=== PATIENT | male | born 1970 | race Caucasian/White ===

== ENCOUNTER 2019-05-20 17:08 | Inpatient (IN) | payer BC ==
[~2019-05-20 17:08] MED LIST: ISOVUE-370 76%-LOCM 1 ML ONE
[2019-05-20 18:45] LABS: Mean Corpuscular HGB CONC 33.4 g/dL (32.0-36.0); Mean Corpuscular Hemoglobin 31.2 pg (27.0-31.0); Mean Corpuscular Volume 93.3 fL (78.0-98.0); Mean Platelet Volume 7.5 fL (7.4-10.4); Platelet Count 195 thou/uL (130-400); RBC Distribution Width 12.8 % (11.5-14.5); Red Blood Cell (RBC) Count 5.15 mill/uL (4.70-6.10); White Blood Cell (WBC) Count 17.4 thou/uL (4.8-10.8)
--- NOTE | 2019-05-20 18:56 | CT ---
CT OF THE ABDOMEN AND PELVIS WITH IV CONTRAST: 05/20/19 INDICATION: History of left sided abdominal pain with leukocytosis. COMPARISON: None. FINDINGS: There is a small left pleural effusion with left basilar atelectasis. There is inflammatory stranding surrounding the pancreas with peripancreatic edema. There is a 1.4 cm nodule involving the right adrenal gland that is incompletely characterized. Left adrenal gland is n ormal appearing. The kidneys demonstrate a nonobstructed calculus measuring 9 mm within the inferior pole of the right kidney. No focal hepatic lesion is evident. The visualized gallbladder demonstrates a small stone within the gallbladder neck. There is a normal appendix in the right lower quadrant. T here is scattered diverticula involving the colon without evidence of active diverticulitis. Small nadine wel is of normal caliber. The bladder is partially decompressed. There is scattered degenerative an osteoarthritic change. IMPRESSION: 1. Findings of acute pancreatitis. 2. Small calcification seen in the gallbladder suspicious for stone; however, would recommend ri ght upper quadrant ultrasound for further characterization. 3. Right adrenal lesion incompletely characterized on the current study. There is suggestion of a tiny lobule of macroscopic fat along the superior margin of the lesion on image 25 of series 2 and this may reflect a small myelolipoma. Further characterization after abatement of the patient's acute symptoms is recommended. CT of the abdomen with and without contrast utilizing adrenal mass protocol is recommended. 4. Right nephrolithiasis. 5. Colonic diverticulosis. 6. Small left pleural effusion and left basilar atelectasis. POS: BH
[2019-05-20 19:07] LABS: Band 35 % (5-11); Lymphocytes 2 % (21-51); MDiff Complete? YES; Monocytes 8 % (0-10); Neutrophil 52 % (42-75); Platelet Morphology Comment Appears Adequate; Polychromasia SLIGHT = 2-3 cells (100X) (0-2/hpf); Reactive Lymphocytes 3 % (0-10)
[2019-05-20 19:09] LABS: ALT (SGPT) 23 U/L (8-55); AST (SGOT) 28 U/L (5-34); Albumin 3.7 g/dL (3.5-5.0); Alkaline Phosphatase 57 U/L (40-110); Anion Gap 16 mmol/L (10-20); BUN (Urea Nitrogen) 20 mg/dL (8.9-20.6); Bilirubin, Total 1.1 mg/dL (0.2-1.2); Calc. Creatinine Clearance 0 mL/min (70-130); Calcium 9.2 mg/dL (7.8-10.44); Carbon Dioxide 29 mmol/L (22-29); Chloride 89 mmol/L (98-107); Estimated GFR-MDRD Greater than 90; Globulin 3.7 g/dL (2.4-3.5); Glucose 123 mg/dL (70-105); Lipase 22 U/L (8-78); Potassium 3.7 mmol/L (3.5-5.1); Protein, Total 7.4 g/dL (6.0-8.3); Sodium 130 mmol/L (136-145)
[2019-05-20 19:32] LABS: Bilirubin Negative (Negative); Blood, Urine Negative (Negative); Clarity Clear (Clear); Glucose, Urine (Dipstick) Normal (Negative); Leukocyte Negative Leu/uL (Negative); Nitrite Negative (Negative); Protein, Urine (Dipstick) 20 mg/dL (Neg-Trace)
[2019-05-20] MEDS ORDERED: Senokot S 8.6-50 MG TAB PO PRN (20:13)
[2019-05-20] MEDS ORDERED: Acetaminophen 325 MG TAB PO PRN (20:13)
[2019-05-20] MEDS ORDERED: Ondansetron PF 4 MG/2 ML Vial IVP PRN (20:13)
[2019-05-20] MEDS ORDERED: Dextrose 50% Abboject 50 ML SYRINGE SLOW IVP PRN (20:47)
[2019-05-20] MEDS ORDERED: HumaLOG 300 UNITS/3 ML VIAL SC PRN (20:47)
[2019-05-20] MEDS ORDERED: Dextrose 5% in Water 1,000 ML IV PRN (20:47)
[2019-05-20 21:40] VITALS: BMI 50.6
[2019-05-20] MEDS: Morphine 4 MG/ML VIAL SLOW IVP PRN (22:04)
[2019-05-20] MEDS: Sodium Chloride 0.9% 1,000 ML IV SCH (22:07)
[2019-05-20] MEDS: Famotidine 20 MG TAB PO SCH (22:50)
[2019-05-20] MEDS ORDERED: ALPRAZolam 0.5 MG TAB PO PRN (23:42)
--- NOTE | 2019-05-21 00:44 | HP ---
PRIMARY CARE PHYSICIAN: Dr. Curtis. CHIEF COMPLAINT: Abdominal pain, abnormal lab values. HISTORY OF PRESENT ILLNESS: Mr. Humphrey is a 48-year-old male, who reported to the emergency room today after he was seen in an emergency room yesterday for a possible bowel obstruction with associated abdominal pain and diarrhea and was discharged home. When he went home, he reported that his abdominal distention concerned him and he went to his PCP, who referred him to this emergency room at [facility] for a possible CT scan. The patient reports having normal bowel movements today. Reports did not have any pain or change in stool, but reports that he has not eaten much at all since Thursday. The patient reports he also has some bilateral lower back pain, which caused the PCP to be concerned and wanted him to be evaluated for pancreatitis. The patient denies any UTI symptoms. Denies any fever or chills. He does have a past medical history pertinent for type 2 diabetes, high blood pressure, and high cholesterol. CT scan done in the emergency room shows acute pancreatitis. Small calcification in the gallbladder suspicious for a stone. I am going to recommend right upper quadrant ultrasound for further characterization. Right adrenal lesion and a CT of the abdomen with and without contrast utilizing adrenal mass protocol is recommended once the patient's pancreatitis has resolved. Also shows right nephrolithiasis, colonic diverticulosis and a small left pleural effusion and left basilar atelectasis. The patient's lab results, pertinent, white blood cell count 17.4. Sodium 130, potassium 3.7, chloride 89, creatinine 0.83, glucose 123. Liver enzymes are unremarkable. Lipase is 22. UA with a specific gravity 1.057, ketones and urobilirubin 2+. The patient will be admitted to the medical floor for further management. PAST MEDICAL HISTORY: Type 2 diabetes, hypertension, high cholesterol. PAST SURGICAL HISTORY: Mandibular I and D. PSYCHIATRIC HISTORY: Anxiety. SOCIAL HISTORY: Rarely drinks alcohol. Denies any drug use. Does smoke cigarettes. Smokes a pack a day. KNOWN ALLERGIES: Amoxicillin, Augmentin, penicillins, vancomycin. CURRENT MEDICATIONS: 1. Xanax 0.5 mg p.o. p.r.n. 2. Vitamin B12 500 mcg p.o. daily. 3. Glyburide 1.25 mg p.o. daily. 4. Lisinopril/hydrochlorothiazide 20/25 mg p.o. daily. 5. Toprol-XL 100 mg p.o. daily. 6. Actos 45 mg p.o. daily. 7. Crestor 20 mg p.o. daily/. 8. Vitamin B1 p.o. daily. PHYSICAL EXAMINATION: VITAL SIGNS: Blood pressure 112/61, pulse is 84, respirations are 18, pO2 saturations are 95% on room air, and temperature is 98.3. CONSTITUTIONAL: The patient appears nontoxic. He is alert and oriented to person, place, and time, is in no apparent distress. HEAD: Atraumatic and normocephalic. EYES: Eyelids are normal to inspection. Pupils are equally round and reactive to light. ENT: Mouth exam is normal. Mucous membranes are moist. NECK: Normal range of motion. Trachea is midline. RESPIRATORY/CHEST: Breath sounds are clear. Chest movement is symmetrical. CARDIOVASCULAR: Regular heart rate and rhythm. Heart sounds are normal. ABDOMEN: Tender, mild intensity over the left lateral abdominal wall. Bowel sounds are heard. There is no rebound, no guarding. BACK: Normal range of motion. No CVA tenderness. EXTREMITIES: Upper extremity; normal inspection, normal range of motion. Radial pulses are normal. Lower extremity; inspection is normal, normal range of motion. Pedal pulses equal bilaterally. There is no edema noted. NEUROLOGIC: The patient is oriented to person, place, and time. Speech is normal. SKIN: Warm, dry, normal in color. PSYCHIATRIC: Oriented to person, place, and time. Has a normal affect. PLAN AND ASSESSMENT: 1. Acute pancreatitis. We will keep the patient n.p.o. We will allow home medications with small sips of water. We will increase diet as tolerated. Hydration, normal saline at 75 mL per hour. Pain medication morphine mg q.4 hours as needed, Zofran for any nausea. Repeat lab values in the morning. 2. Diabetes type 2. Accu-Cheks before meals and at bedtime. Mild sliding scale. We will hold his p.o. medications for now. 3. Hypertension. We will trend. Continue home medications. 4. Deep venous thrombosis and gastrointestinal prophylaxis have been started. 5. Hyperlipidemia. We will check lipids in the morning. 6. Hospital course dependent on clinical findings. Job ID: [id number]
[2019-05-21] MEDS: Morphine 4 MG/ML VIAL SLOW IVP PRN ×3 (02:07→19:54)
[2019-05-21 06:01] LABS: Hemoglobin 15.2 g/dL (14.0-18.0); Mean Corpuscular HGB CONC 33.4 g/dL (32.0-36.0); Mean Corpuscular Hemoglobin 31.6 pg (27.0-31.0); Mean Corpuscular Volume 94.7 fL (78.0-98.0); Mean Platelet Volume 7.3 fL (7.4-10.4); Platelet Count 201 thou/uL (130-400); RBC Distribution Width 12.7 % (11.5-14.5); Red Blood Cell (RBC) Count 4.81 mill/uL (4.70-6.10); White Blood Cell (WBC) Count 17.4 thou/uL (4.8-10.8)
[2019-05-21] MEDS: Morphine 2 MG/ML SYRINGE SLOW IVP PRN ×2 (06:17→10:29)
[2019-05-21 06:28] LABS: Band 11 % (5-11); Lymphocytes 5 % (21-51); MDiff Complete? YES; Monocytes 12 % (0-10); Myelocyte 1 % (0-0); Neutrophil 71 % (42-75)
[2019-05-21 06:37] LABS: ALT (SGPT) 21 U/L (8-55); AST (SGOT) 18 U/L (5-34); Albumin 3.4 g/dL (3.5-5.0); Alkaline Phosphatase 57 U/L (40-110); Anion Gap 14 mmol/L (10-20); BUN (Urea Nitrogen) 17 mg/dL (8.9-20.6); Bilirubin, Total 1.1 mg/dL (0.2-1.2); Calc. Creatinine Clearance 254 mL/min (70-130); Calcium 8.8 mg/dL (7.8-10.44); Carbon Dioxide 30 mmol/L (22-29); Cardiac Risk 2.2 (Less than 4.5); Chloride 91 mmol/L (98-107); Cholesterol 76 mg/dl (< 200 Desired); Estimated GFR-MDRD Greater than 90; Globulin 2.9 g/dL (2.4-3.5); Glucose 123 mg/dL (70-105); HDL Cholesterol 35 mg/dL (>60 Neg Risk); LDL Cholesterol, Calculated 32 mg/dL; Lipase 18 U/L (8-78); Protein, Total 6.3 g/dL (6.0-8.3); Sodium 132 mmol/L (136-145); Triglycerides 46 mg/dL (Less than 150)
--- NOTE | 2019-05-21 08:01 | ULT ---
RIGHT UPPER QUADRANT ULTRASOUND CLINICAL HISTORY: Stone in the common bile duct with pancreatitis. COMPARISON: None FINDINGS: Liver:Normal echotexture without focal mass. Bile ducts: No intrahepatic or extrahepatic biliary dilation.; common bile duct: 0.53cm. Gallbladder: No intraluminal stones are demonstrated. There is mild wall thickening involving the gal lbladder measuring up to 6 mm. No appreciable pericholecystic fluid is evident. Carrillo's sign:Positive Main portal vein:Not well assessed Pancreas: Not well seen Right kidney: No pelvicalyceal dilatation. Right kidney measures 13.4 x 6.8 x 6.6 cm. Additional findings: None. IMPRESSION: No intraluminal gallstones demonstrated. There is gallbladder wall thickening and report of a positiv e sonographic Carrillo's sign. Findings are quadrupled for acute cholecystitis by sonography. Common bile duct was normal in size.
[2019-05-21] MEDS: Rosuvastatin 20 MG TAB PO SCH (08:02)
[2019-05-21] MEDS: Enoxaparin Sodium 40 MG/0.4 ML SYRINGE SC SCH (08:02)
[2019-05-21] MEDS: Famotidine 20 MG TAB PO SCH ×2 (08:03→19:54)
[2019-05-21] MEDS: Lisinopril/Hydrochlorothiazide 20/25 mg Tablet PO SCH (08:03)
[2019-05-21] MEDS: Sodium Chloride 0.9% 1,000 ML IV SCH ×2 (10:29→19:53)
--- NOTE | 2019-05-21 14:52 | PDOC.HOSPP ---
- Subjective Encounter Date: 05/21/19 Encounter Time: 14:50 Subjective: f/u for acute pancreatitis on IVF's, pain control and NPO with normal lipase values but CT imaging showing stranding around pancreas. Abd sono showing evidence of cholecystitis. Feels better overall. - Objective Vital Signs & Weight: Vital Signs (12 hours) Temp Pulse Resp BP BP Pulse Ox 05/21/19 11:52 98.2 F 88 16 119/66 95 05/21/19 08:03 87 05/21/19 08:00 92 L 05/21/19 07:07 98.2 F 87 18 134/75 91 L 05/21/19 04:53 98.0 F 77 19 130/71 92 L Weight Weight 363 lb 3.2 oz I&O: 05/20/19 05/21/19 05/22/19 06:59 06:59 06:59 Intake Total 605 Balance 605 Result Diagrams: 05/21/19 05:23 05/21/19 05:23 Additional Labs: Accuchecks 05/21/19 05/21/19 05/20/19 11:27 04:04 22:29 POC Glucose 126 H 119 H 105 Laboratory Tests 05/20/19 05/20/19 05/21/19 18:34 18:34 05:23 WBC 17.4 H Band Neuts % (Manual) 35 H Sodium 130 L Potassium 3.7 Lipase 22 18 05/21/19 05:23 WBC Band Neuts % (Manual) 11 Sodium Potassium Lipase Radiology Reviewed by me: Yes (CT abd/pel - +pancreas stranding; RUQ sono - acute cholecystitis) Hospitalist ROS - Medication Medications: Active Medications Generic Name Dose Route Start Last Admin Trade Name Freq PRN Reason Stop Dose Admin Enoxaparin Sodium 40 mg 05/21/19 09:00 05/21/19 08:02 Lovenox SC 40 mg 0900 MORIS Administration Famotidine 20 mg 05/20/19 21:00 05/21/19 08:03 Pepcid PO 20 mg BID MORIS Administration Lisinopril/HCTZ 1 tab 05/21/19 09:00 05/21/19 08:03 Prinizide 20-25 PO 1 tab DAILY MORIS Administration Sodium Chloride 1,000 mls @ 75 mls/hr 05/20/19 22:00 05/21/19 10:29 Normal Saline 0.9% IV 1,000 mls .[id number] MORIS Administration Metoprolol Succinate 100 mg 05/21/19 09:00 05/21/19 08:02 Toprol Xl PO 100 mg DAILY MORIS Administration Morphine Sulfate 4 mg 05/20/19 20:22 05/21/19 13:43 Morphine SLOW IVP 4 mg Q4H PRN Administration Moderate to Severe Pain (6-10) Morphine Sulfate 2 mg 05/20/19 20:22 05/21/19 10:29 Morphine SLOW IVP 2 mg Q4H PRN Administration Moderate Pain (4-5) Rosuvastatin Calcium 20 mg 05/21/19 09:00 05/21/19 08:02 Crestor PO 20 mg DAILY MORIS Administration - Exam General Appearance: NAD, awake alert Eye: PERRL, anicteric sclera ENT: normocephalic atraumatic, no oropharyngeal lesions Neck: supple, symmetric, no JVD, no thyromegaly, no lymphadenopathy Heart: RRR, no murmur, no gallops, no rubs, normal peripheral pulses Respiratory: CTAB, no wheezes, no rales, no ronchi, normal chest expansion Gastrointestinal: soft, normal bowel sounds, no guarding Gastrointestinal - other findings: obese, mild TTP in mid-epigastric region Extremities: no cyanosis, no clubbing, no edema Skin: normal turgor, no lesions, no rashes Neurological: cranial nerve grossly intact, no new deficit Musculoskeletal: normal tone, normal strength Psychiatric: normal affect, A&O x 3 Hosp A/P (1) Acute pancreatitis Code(s): K85.90 - ACUTE PANCREATITIS WITHOUT NECROSIS OR INFECTION, UNSP Status: Acute Plan: ? of pancreatitis as enzymes are negative since admit, advance to clear liquids , recheck Lipase in am, consider GI consultation (2) Acute cholecystitis Code(s): K81.0 - ACUTE CHOLECYSTITIS Status: Acute Plan: Suspected given LULI woodward, start Levaquin 750mg IV daily and Metronidazole 500mg IV TID (3) Abdominal pain Code(s): R10.9 - UNSPECIFIED ABDOMINAL PAIN Status: Acute Qualifiers: Abdominal location: epigastric Qualified Code(s): R10.13 - Epigastric pain Plan: Suspecte due to #1, #2, Pain control Morphine Sulfate IV (4) Leukocytosis Code(s): D72.829 - ELEVATED WHITE BLOOD CELL COUNT, UNSPECIFIED Status: Acute Qualifiers: Leukocytosis type: bandemia Qualified Code(s): D72.825 - Bandemia Plan: Secondary to above, serial monitoring (5) Hypokalemia Code(s): E87.6 - HYPOKALEMIA Status: Acute Plan: KCL replacement, serial K+ monitoring - Plan continue antibiotics, social worker assistant, out of bed/ambulate Stable currently Add Levaquin 750mg IV daily Add Metronidazole 500mg IV TID Pain control with Morphine Sulfate IV Continue IVF's Clear liquids as tolerated AM lab: CMP, CBC
[2019-05-21] MEDS: metroNIDAZOLE 500 MG in Premix Bag 1 BAG IVPB SCH (19:54)
[2019-05-22] MEDS: Morphine 4 MG/ML VIAL SLOW IVP PRN ×4 (00:32→20:44)
[2019-05-22 05:17] LABS: ALT (SGPT) 22 U/L (8-55); AST (SGOT) 21 U/L (5-34); Albumin 3.3 g/dL (3.5-5.0); Alkaline Phosphatase 71 U/L (40-110); Anion Gap 13 mmol/L (10-20); BUN (Urea Nitrogen) 10 mg/dL (8.9-20.6); Bilirubin, Total 0.8 mg/dL (0.2-1.2); Calc. Creatinine Clearance 302 mL/min (70-130); Calcium 8.8 mg/dL (7.8-10.44); Carbon Dioxide 28 mmol/L (22-29); Chloride 91 mmol/L (98-107); Estimated GFR-MDRD Greater than 90; Globulin 3.2 g/dL (2.4-3.5); Glucose 149 mg/dL (70-105); Potassium 3.1 mmol/L (3.5-5.1); Protein, Total 6.5 g/dL (6.0-8.3); Sodium 129 mmol/L (136-145)
[2019-05-22] MEDS: Sodium Chloride 0.9% 1,000 ML IV SCH ×2 (05:39→20:43)
[2019-05-22] MEDS: metroNIDAZOLE 500 MG in Premix Bag 1 BAG IVPB SCH ×3 (05:39→20:41)
[2019-05-22 06:01] LABS: Band 11 % (5-11); Hemoglobin 15.4 g/dL (14.0-18.0); Lymphocytes 9 % (21-51); MDiff Complete? YES; Mean Corpuscular HGB CONC 33.1 g/dL (32.0-36.0); Mean Corpuscular Hemoglobin 30.9 pg (27.0-31.0); Mean Corpuscular Volume 93.2 fL (78.0-98.0); Mean Platelet Volume 7.1 fL (7.4-10.4); Monocytes 13 % (0-10); Neutrophil 67 % (42-75); Platelet Count 222 thou/uL (130-400); Platelet Morphology Comment Appears Adequate; RBC Distribution Width 12.6 % (11.5-14.5); Red Blood Cell (RBC) Count 4.98 mill/uL (4.70-6.10); White Blood Cell (WBC) Count 16.7 thou/uL (4.8-10.8)
[2019-05-22] MEDS: Lisinopril/Hydrochlorothiazide 20/25 mg Tablet PO SCH (07:52)
[2019-05-22] MEDS: Enoxaparin Sodium 40 MG/0.4 ML SYRINGE SC SCH (07:52)
[2019-05-22] MEDS: Famotidine 20 MG TAB PO SCH ×2 (07:53→20:42)
[2019-05-22] MEDS: Rosuvastatin 20 MG TAB PO SCH (07:53)
[2019-05-22] MEDS ORDERED: Potassium Chloride 20 MEQ TAB PO SCH (09:45)
--- NOTE | 2019-05-22 09:57 | PDOC.HOSPP ---
- Subjective Encounter Date: 05/22/19 Encounter Time: 09:35 Subjective: f/u for suspected acute cholecystitis/pancreatitis by imaging. Lipase normal since admit. Feels some abd pain but no emesis. Tolerating clear liquids currently. - Objective Vital Signs & Weight: Vital Signs (12 hours) Temp Pulse Resp BP Pulse Ox 05/22/19 08:00 91 L 05/22/19 07:52 98.4 F 80 16 136/75 91 L Weight Weight 363 lb 3.2 oz I&O: 05/21/19 05/22/19 05/23/19 06:59 06:59 06:59 Intake Total 605 1244 Balance 605 1244 Result Diagrams: 05/22/19 04:34 05/22/19 04:34 Additional Labs: Accuchecks 05/22/19 05/21/19 05/21/19 04:30 19:22 16:46 POC Glucose 147 H 114 H 121 H 05/21/19 11:27 POC Glucose 126 H Laboratory Tests 05/20/19 05/20/19 05/21/19 18:34 18:34 05:23 WBC 17.4 H Band Neuts % (Manual) 35 H Sodium 130 L 132 L Potassium 3.7 3.0 L Carbon Dioxide 30 H Triglycerides 46 Lipase 22 18 05/21/19 05:23 WBC Band Neuts % (Manual) 11 Sodium Potassium Carbon Dioxide Triglycerides Lipase Hospitalist ROS - Medication Medications: Active Medications Generic Name Dose Route Start Last Admin Trade Name Freq PRN Reason Stop Dose Admin Enoxaparin Sodium 40 mg 05/21/19 09:00 05/22/19 07:52 Lovenox SC 40 mg 0900 MORIS Administration Famotidine 20 mg 05/20/19 21:00 05/22/19 07:53 Pepcid PO 20 mg BID MORIS Administration Lisinopril/HCTZ 1 tab 05/21/19 09:00 05/22/19 07:52 Prinizide 20-25 PO 1 tab DAILY MORIS Administration Sodium Chloride 1,000 mls @ 75 mls/hr 05/20/19 22:00 05/22/19 05:39 Normal Saline 0.9% IV 1,000 mls .[id number] MORIS Administration Levofloxacin 750 mg/ Device 150 mls @ 100 mls/hr 05/21/19 16:00 05/21/19 15: 47 IVPB 150 mls Q24HR MORIS Administration Metronidazole 500 mg/ Device 100 mls @ 100 mls/hr 05/21/19 22:00 05/22/19 05: 39 IVPB 100 mls Q8HR MORIS Administration Metoprolol Succinate 100 mg 05/21/19 09:00 05/22/19 07:53 Toprol Xl PO 100 mg DAILY MORIS Administration Morphine Sulfate 4 mg 05/20/19 20:22 05/22/19 05:40 Morphine SLOW IVP 4 mg Q4H PRN Administration Moderate to Severe Pain (6-10) Morphine Sulfate 2 mg 05/20/19 20:22 05/21/19 10:29 Morphine SLOW IVP 2 mg Q4H PRN Administration Moderate Pain (4-5) Rosuvastatin Calcium 20 mg 05/21/19 09:00 05/22/19 07:53 Crestor PO 20 mg DAILY MORIS Administration Sodium Chloride 10 ml 05/20/19 20:13 05/22/19 07:54 Flush - Normal Saline IVF 10 ml PRN PRN Administration Saline Flush - Exam General Appearance: NAD, awake alert Eye: PERRL, anicteric sclera ENT: normocephalic atraumatic, no oropharyngeal lesions Neck: supple, symmetric, no JVD, no thyromegaly Heart: RRR, no murmur, no gallops, no rubs, normal peripheral pulses Respiratory: CTAB, no wheezes, no rales, no ronchi, normal chest expansion Gastrointestinal: soft, non-distended, normal bowel sounds, no palpable masses Gastrointestinal - other findings: mild TTP in RUQ Extremities: no cyanosis, no clubbing, no edema Skin: normal turgor, no lesions, no rashes Neurological: cranial nerve grossly intact, no focal deficits, no new deficit Musculoskeletal: normal tone, normal strength Psychiatric: normal affect, A&O x 3 Hosp A/P (1) Acute cholecystitis Code(s): K81.0 - ACUTE CHOLECYSTITIS Status: Acute Plan: Suspected from recent imaging, continue Levaquin/Flagyl empirically, serial abd exams, consider GI evaluation if not clinically improving in next 24h (2) Acute pancreatitis Code(s): K85.90 - ACUTE PANCREATITIS WITHOUT NECROSIS OR INFECTION, UNSP Status: Acute Plan: Initially suspected but enzymes have remained normal since admit (3) Abdominal pain Code(s): R10.9 - UNSPECIFIED ABDOMINAL PAIN Status: Acute Qualifiers: Abdominal location: epigastric Qualified Code(s): R10.13 - Epigastric pain Plan: Suspected due to #1, improved (4) Leukocytosis Code(s): D72.829 - ELEVATED WHITE BLOOD CELL COUNT, UNSPECIFIED Status: Acute Qualifiers: Leukocytosis type: bandemia Qualified Code(s): D72.825 - Bandemia Plan: mild improvement, continue serial monitoring (5) Hypokalemia Code(s): E87.6 - HYPOKALEMIA Status: Acute Plan: KCL 40meq po BID, serial K+ monitoring - Plan plan discussed w/ family, continue antibiotics, out of bed/ambulate, DVT proph w /SCDs Stable currently Add Levaquin 750mg IV daily Add Metronidazole 500mg IV TID Pain control with Morphine Sulfate IV Continue IVF's Clear liquids as tolerated KCL 40meq BID AM lab: CMP, CBC
[2019-05-23] MEDS: metroNIDAZOLE 500 MG in Premix Bag 1 BAG IVPB SCH ×2 (05:49→13:41)
[2019-05-23] MEDS: Sodium Chloride 0.9% 1,000 ML IV SCH (05:50)
[2019-05-23] MEDS: Morphine 4 MG/ML VIAL SLOW IVP PRN (05:52)
[2019-05-23 06:26] LABS: Hemoglobin 15.3 g/dL (14.0-18.0); Mean Corpuscular HGB CONC 33.2 g/dL (32.0-36.0); Mean Corpuscular Hemoglobin 31.4 pg (27.0-31.0); Mean Corpuscular Volume 94.7 fL (78.0-98.0); Platelet Count 230 thou/uL (130-400); RBC Distribution Width 12.7 % (11.5-14.5); Red Blood Cell (RBC) Count 4.88 mill/uL (4.70-6.10); White Blood Cell (WBC) Count 14.7 thou/uL (4.8-10.8)
[2019-05-23 06:33] LABS: Band 9 % (5-11); Lymphocytes 7 % (21-51); MDiff Complete? YES; Monocytes 16 % (0-10); Neutrophil 68 % (42-75)
[2019-05-23 06:42] LABS: ALT (SGPT) 27 U/L (8-55); AST (SGOT) 20 U/L (5-34); Albumin 3.1 g/dL (3.5-5.0); Alkaline Phosphatase 72 U/L (40-110); Anion Gap 11 mmol/L (10-20); BUN (Urea Nitrogen) 7 mg/dL (8.9-20.6); Bilirubin, Total 0.7 mg/dL (0.2-1.2); Calc. Creatinine Clearance 302 mL/min (70-130); Calcium 8.7 mg/dL (7.8-10.44); Carbon Dioxide 31 mmol/L (22-29); Chloride 93 mmol/L (98-107); Estimated GFR-MDRD Greater than 90; Globulin 3.1 g/dL (2.4-3.5); Glucose 156 mg/dL (70-105); Potassium 3.1 mmol/L (3.5-5.1); Protein, Total 6.2 g/dL (6.0-8.3); Sodium 132 mmol/L (136-145)
[2019-05-23] MEDS ORDERED: Potassium Chloride 20 MEQ TAB PO SCH (08:00)
[2019-05-23] MEDS: Famotidine 20 MG TAB PO SCH (08:02)
[2019-05-23] MEDS: Rosuvastatin 20 MG TAB PO SCH (08:02)
[2019-05-23] MEDS: Lisinopril/Hydrochlorothiazide 20/25 mg Tablet PO SCH (08:02)
[2019-05-23] MEDS: Enoxaparin Sodium 40 MG/0.4 ML SYRINGE SC SCH (08:02)
[2019-05-23 11:52] VITALS: BP 116/75; TEMP 98.4
--- NOTE | 2019-05-23 21:12 | DIS ---
DATE OF ADMISSION: 05/20/2019 DATE OF DISCHARGE: 05/23/2019 DISCHARGE DIAGNOSES: 1. Acute acalculous cholecystitis, mild, improved. 2. Question of acute pancreatitis with normal enzymes. 3. Abdominal pain secondary to #1, resolved. 4. Leukocytosis, improved. 5. Hypokalemia, improved. 6. Diabetes mellitus type 2. CONSULTATION: None. PERTINENT LABORATORY AND X-RAY FINDINGS: Sodium ranged between 129 to 132, potassium ranged between 3.0 to 3.7. Total bilirubin 1.1, AST 18, ALT 21, alkaline phosphatase 57. Total cholesterol 76, triglycerides 46, HDL 35, LDL 32. Lipase ranged between 18 to 22. CBC showed a white blood cell count ranging between 14.[address] of the abdomen and pelvis dated 05/20/2019, showed question of acute pancreatitis with inflammatory stranding with peripancreatic edema. Right nephrolithiasis without obstruction. Colonic diverticulosis noted. Abdominal ultrasound dated 05/21/2019, showed no intraluminal gallstones. Gallbladder wall thickening with positive Carrillo sign. No common bile duct dilation. HOSPITAL COURSE: The patient was admitted to the medical floor after initially presenting with increased abdominal pain. The patient was initially evaluated with concern for bowel obstruction; however, CT imaging of the abdomen and pelvis showed no evidence of bowel obstruction with questionable stranding of the pancreas with peripancreatic edema concerning for pancreatitis. The patient was placed on n.p.o. status and given IV fluids and intravenous morphine sulfate. Abdominal ultrasound was taken showing evidence of gallbladder wall thickening without cholelithiasis or common bile duct dilation. The patient was given IV Levaquin and Flagyl after concern for acute cholecystitis. The patient received IV antibiotics throughout his hospital course with overall improvement and stabilization of abdominal complaints. The patient transitioned to oral intake tolerating clear liquids and advancing as tolerated. No specific recommendation for acute surgical intervention at this time. Current recommendations are to continue oral antibiotic therapy to complete a 10-day course and to monitor for recurrence of symptoms. The patient may need additional surgical intervention on an outpatient basis if symptoms recur. I have examined the patient at the time of discharge and discussed followup instructions. The patient verbalized understanding and in agreement, ready for discharge on 05/23/2019. DISCHARGE MEDICATIONS: 1. Levaquin 500 mg p.o. daily x7 days. 2. Flagyl 500 mg p.o. t.i.d. x7 days. 3. Alprazolam 0.5 mg p.o. daily p.r.n. 4. Vitamin B12 500 mcg p.o. daily. 5. Glyburide 1.25 mg p.o. daily. 6. Lisinopril/hydrochlorothiazide 20/25 mg 1 tablet p.o. daily. 7. Toprol-XL 100 mg p.o. daily. 8. Actos 45 mg p.o. daily. 9. Crestor 20 mg p.o. daily. 10. Vitamin B complex one capsule p.o. daily. FOLLOWUP: The patient may follow up with his primary care provider, Dr. Huan Curtis within 7 days of discharge. CONDITION ON DISCHARGE: Stable. ACTIVITY: Ad-natalee. DIET: ADA and heart healthy. CODE STATUS: Full. DISPOSITION: Home on 05/23/2019. TIME SPENT: Total time preparing and coordinating discharge 32 minutes. Job ID: [id number]
== END 2019-05-23 14:16 | disposition home or self-care (01) | DRG 444 ==
LOC: ERS 17:08 → T4-B 19:45
PROVIDERS: ADMIT Internal Medicine; ATTEND Internal Medicine
DX: K81.0 Acute cholecystitis (principal); K85.90 Acute pancreatitis without necrosis or infection, unspecified; Z68.43 Body mass index [BMI] 50.0-59.9, adult; E11.9 Type 2 diabetes mellitus without complications; I10 Essential (primary) hypertension; E78.00 Pure hypercholesterolemia, unspecified; F41.9 Anxiety disorder, unspecified; F17.210 Nicotine dependence, cigarettes, uncomplicated; E66.01 Morbid (severe) obesity due to excess calories; N20.0 Calculus of kidney; K57.90 Diverticulosis of intestine, part unspecified, without perforation or abscess without bleeding; E78.5 Hyperlipidemia, unspecified; D72.825 Bandemia; E87.6 Hypokalemia; Z88.0 Allergy status to penicillin; Z88.1 Allergy status to other antibiotic agents; Z88.8 Allergy status to other drugs, medicaments and biological substances; Z79.84 Long term (current) use of oral hypoglycemic drugs; Z79.899 Other long term (current) drug therapy
CPT/HCPCS: 36415; 36416; 74177; 76705; 80053; 80061; 81003; 83690; 85007; 85025; 85027; J1650; J1956; J2270

== ENCOUNTER 2019-06-13 07:44 | Outpatient (CLI) | payer BC ==
--- NOTE | 2019-06-13 10:47 | NM ---
Exam: Nuclear medicine HIDA scan with ejection fraction HISTORY: Cholecystitis, unspecified. TECHNIQUE: Patient was ministered 5.3 mCi of technetium 99m mebrofenin intravenously. Ejection fracti on was determined after the patient was administered 8 out of ensure orally 1 hour post injection of radiopharmaceutical FINDINGS: Appropriate uptake of the radiotracer by the hepatic parenchyma. Localization of radiotracer into the intrahepatic biliary system. Passage of radiotracer from the common bile duct into small bowel loops. Localization of radiotracer into the gallbladder as early as 26 minutes. Ejection fraction: 99% IMPRESSION: 1. No scintigraphic evidence of acute cholecystitis. 2. 99% ejection fraction.
== END 2019-06-13 07:45 | disposition home or self-care (01) ==
LOC: NM 07:44
PROVIDERS: ATTEND Family Medicine
DX: K81.9 Cholecystitis, unspecified (principal)
CPT/HCPCS: 78227; A9537

== ENCOUNTER 2024-07-05 10:02 | Outpatient (CLI) | payer BC | END 2024-07-05 10:03 | disposition home or self-care (01) | LOC: SCSRAD 10:02 | PROVIDERS: ATTEND Family Medicine | DX: M54.50 Low back pain, unspecified (principal); M47.816 Spondylosis without myelopathy or radiculopathy, lumbar region | CPT/HCPCS: 72120 ==

== ENCOUNTER 2025-03-17 06:45 | Inpatient (IN) | payer BC ==
[2025-03-17] MEDS ORDERED: Non-Formulary Item 1 EACH (Acetaminophen With Codeine [Acetaminophen-Cod #4 Tablet] 1 EAC PO PRN (08:18)
[2025-03-17] MEDS ORDERED: ALPRAZolam 0.5 MG TAB PO PRN (08:18)
[2025-03-17] MEDS ORDERED: NAPROXEN SODIUM 220 MG PO PRN (08:18)
[2025-03-17] MEDS ORDERED: Senokot S 8.6-50 MG TAB PO PRN (08:20)
[2025-03-17] MEDS ORDERED: Melatonin 3 MG TAB PO PRN (08:20)
[2025-03-17] MEDS ORDERED: Bisacodyl 10 MG SUPP PR PRN (08:20)
[2025-03-17] MEDS ORDERED: Non-Formulary Item 1 EACH (Semaglutide [Ozempic] 1 MG/0.75 ML Pen.Injctr) SQ SCH (08:30)
[2025-03-17] MEDS ORDERED: PROPOFOL 20 ML ONE (08:31)
[2025-03-17] MEDS ORDERED: fentaNYL PF 100 MCG/2 ML SYRINGE ONE (08:31)
[2025-03-17] MEDS ORDERED: Naproxen 500 MG TAB PO PRN (08:42)
[2025-03-17] MEDS ORDERED: Semaglutide [Ozempic] 1 MG/0.75 ML Pen.Injctr SC SCH (08:45)
[2025-03-17] MEDS ORDERED: Lidocaine 1% PF 5 ML VIAL ONE (08:49)
[2025-03-17] MEDS ORDERED: Ondansetron PF 4 MG/2 ML Vial ONE (08:52)
[2025-03-17] MEDS ORDERED: Non-Formulary Item 1 EACH (Cholecalciferol (Vitamin D3) [Vitamin D3] 5,000 UNITS Capsule) PO SCH (09:00)
[2025-03-17] MEDS ORDERED: Non-Formulary Item 1 EACH (Omeprazole [Omeprazole] 20 MG Capsule.Dr) PO SCH (09:00)
[2025-03-17] MEDS ORDERED: [UNRECOGNIZED DRUG - OTHER] PO SCH (09:00)
[2025-03-17] MEDS ORDERED: CALCIUM CARB PO SCH (09:00)
[2025-03-17] MEDS ORDERED: CELECOXIB 400 MG PO SCH (09:00)
[2025-03-17] MEDS ORDERED: Non-Formulary Item 1 EACH (Tumeric/Ging/Olive/Oreg/Capryl [Candicidal Capsule] 1 EACH Cap PO SCH (09:00)
[2025-03-17] MEDS ORDERED: Non-Formulary Item 1 EACH (Cyanocobalamin (Vitamin B-12) [B-12] 500 MCG Tablet) PO SCH (09:00)
[2025-03-17] MEDS ORDERED: GINKGO BILOBA LEAF EXTRACT 60 MG PO SCH (09:00)
[2025-03-17] MEDS ORDERED: Non-Formulary Item 1 EACH (Ferrous Sulfate [Iron] 325 MG Tablet) PO SCH (09:00)
[2025-03-17] MEDS ORDERED: Non-Formulary Item 1 EACH (Magnesium Oxide [Magnesium] 400 MG Tablet) PO SCH (09:00)
[2025-03-17] MEDS: Cyanocobalamin (Vitamin B-12) 1,000 MCG TAB PO SCH (10:33)
[2025-03-17] MEDS: Cholecalciferol 1,000 UNITS (25 MCG) TAB PO SCH (10:33)
[2025-03-17] MEDS: Pantoprazole 40 MG DR.TAB PO SCH (10:33)
[2025-03-17] MEDS: Aspirin Chewable 81 MG TAB PO SCH (10:33)
[2025-03-17] MEDS: Lisinopril 20 MG TAB PO SCH (10:33)
[2025-03-17] MEDS: Magnesium Oxide 400 MG TAB PO SCH (10:34)
[2025-03-17] MEDS: Metoprolol Succinate XL 100 MG ER.TAB PO SCH (10:34)
[2025-03-17] MEDS: Rosuvastatin 20 MG TAB PO SCH (10:34)
[2025-03-17] MEDS: Multivitamin w/Zinc Stress 1 TAB PO SCH (10:34)
[2025-03-17 11:22] VITALS: BMI 43.4
[2025-03-17 11:38] VITALS: BMI 43.5
[2025-03-17] MEDS: Clindamycin/D5W 900 MG in Premix 1 BAG IVPB SCH (16:10)
[2025-03-17] MEDS: Acetaminophen/Codeine 30-300mg Tablet PO PRN (16:11)
[2025-03-17] MEDS ORDERED: Non-Formulary Item 1 EACH (Insulin Glargine,Hum.Rec.Anlog [Toujeo Solostar] 300 UNIT/ML I SQ SCH (21:00)
[2025-03-17] MEDS: Insulin Glargine 30 UNITS/0.3 ML VIAL SC SCH (21:11)
[2025-03-18] MEDS: Tumeric/Ging/Olive/Oreg/Capryl [Candicidal Capsule] PO SCH (09:49)
[2025-03-18] MEDS: GINKGO BILOBA 60 MG PO SCH (09:49)
[2025-03-18] MEDS: Ferrous Sulfate 325 MG TAB PO SCH (09:55)
[2025-03-18] MEDS ORDERED: metFORMIN 500 MG TAB PO SCH (17:00)
[2025-03-18] MEDS: metFORMIN 500 MG TAB PO SCH (20:02)
[2025-03-19] MEDS: Acetaminophen 325 MG TAB PO SCH (01:04)
[2025-03-19 07:49] LABS: #Basophils 0.05 10x3/uL (0.0-0.2); #Eosinophils Less than 0.03 10x3/uL (0.0-0.7); #Monocytes 2.67 10x3/uL (0.11-0.59); #Neutrophils 19.32 10x3/uL (1.40-6.50); %Basophils 0.2 % (0.0-1.0); %Eosinophils 0.0 % (0.0-10.0); %Lymphocytes 4.6 % (21.0-51.0); %Monocytes 11.5 % (0.0-10.0); %Neutrophils 83.2 % (42.0-75.0); Hematocrit 40.9 % (42.0-52.0); Hemoglobin 13.4 g/dL (14.0-18.0); Mean Corpuscular Hemoglobin 28.8 pg (27.0-31.0); Mean Corpuscular Volume 88.0 fL (78.0-98.0); Platelet Count 273 10x3/uL (130-400); Red Blood Cell (RBC) Count 4.65 mill/uL (4.70-6.10); White Blood Cell (WBC) Count 23.24 10x3/uL (4.8-10.8)
[2025-03-20] MEDS: Acetaminophen 325 MG TAB PO PRN (01:08)
[2025-03-20] MEDS: HYDROcodone/Acetaminophen 5/325 mg Tablet PO PRN (18:00)
[2025-03-21] MEDS: HYDROcodone/Acetaminophen 5/325 mg Tablet PO PRN (05:33)
[2025-03-22] MEDS: Clindamycin 150 MG CAP PO SCH (06:45)
[2025-03-22 16:25] VITALS: BP 134/83; TEMP 97.9
== END 2025-03-22 16:37 | disposition home or self-care (01) | DRG 920 ==
LOC: SDC 06:45 → SURG B 08:20
PROVIDERS: ADMIT Thoracic Surgery (Cardiothoracic Vascular Surgery); ATTEND Thoracic Surgery (Cardiothoracic Vascular Surgery)
PROC: 0J9C0ZZ Drainage of Pelvic Region Subcutaneous Tissue and Fascia, Open Approach (ICD-10-PCS; principal; 2025-03-17)
PROC: 3E03329 Introduction of Other Anti-infective into Peripheral Vein, Percutaneous Approach (ICD-10-PCS; 2025-03-17)
DX: N99.843 Postprocedural seroma of a genitourinary system organ or structure following other procedure (principal); L02.214 Cutaneous abscess of groin; B95.7 Other staphylococcus as the cause of diseases classified elsewhere; F17.200 Nicotine dependence, unspecified, uncomplicated; Z88.1 Allergy status to other antibiotic agents; Z88.0 Allergy status to penicillin; Z88.8 Allergy status to other drugs, medicaments and biological substances; Z79.899 Other long term (current) drug therapy
CPT/HCPCS: 36415; 36416; 85025; 87070; 87077; 87186; 87205; 97139; J1815; J2405; J2704; J3010; J3490